=== PATIENT | male | born 1935 | race Caucasian/White ===

== ENCOUNTER 2017-02-18 16:44 | Emergency (ER) | payer OTHER ==
[~2017-02-18] VITALS: Ht 172.7 cm; Wt 83.5 kg
[~2017-02-18 16:44] MED LIST: ASPIRIN81 M1 PO; ATORVASTATIN CA40 M1 PO; Diltiazem180 MG PO; FUROSEMIDE40 MG PO; GLUCOTROL10 MG PO; LANTUS100 U/ML SC; LEVOTHYROXIN0.075 M1 PO; [UNRECOGNIZED DRUG - CODE] IM
[2017-02-18 17:36] VITALS: BP 107/71
[2017-02-18] MEDS ORDERED: NORCO 5-325 TA1 EACH PO (19:09)
[2017-02-18] MEDS ORDERED: WALKER (19:10)
== END 2017-02-18 19:56 | disposition home or self-care (01) ==
LOC: ED 16:44
DX: S32.82XA Multiple fractures of pelvis without disruption of pelvic ring, initial encounter for closed fracture (principal); Z79.899 Other long term (current) drug therapy; W22.8XXA Striking against or struck by other objects, initial encounter; Y93.89 Activity, other specified; Y92.89 Other specified places as the place of occurrence of the external cause; Y99.8 Other external cause status

== ENCOUNTER → 2017-04-12 | Outpatient (CLI) | payer OTHER ==
[~2017-04-12] MED LIST changes: +NORCO 5-325 TA1 EACH PO; +WALKER
== END | disposition home or self-care (01) ==
LOC: CT 15:49
DX: S32.810D Multiple fractures of pelvis with stable disruption of pelvic ring, subsequent encounter for fracture with routine healing (principal); S32.89XD Fracture of other parts of pelvis, subsequent encounter for fracture with routine healing; X58.XXXD Exposure to other specified factors, subsequent encounter

== ENCOUNTER → 2018-04-17 | Outpatient (CLI) | payer OTHER | END | disposition home or self-care (01) | LOC: RAD 10:15 | DX: Z13.820 Encounter for screening for osteoporosis (principal); S32.89XA Fracture of other parts of pelvis, initial encounter for closed fracture; M17.11 Unilateral primary osteoarthritis, right knee; M25.552 Pain in left hip; M85.9 Disorder of bone density and structure, unspecified; X58.XXXA Exposure to other specified factors, initial encounter; Y93.89 Activity, other specified; Y92.89 Other specified places as the place of occurrence of the external cause; Y99.8 Other external cause status ==

== ENCOUNTER 2019-06-18 19:20 | Emergency (ER) | payer OTHER ==
[~2019-06-18] VITALS: Ht 162.5 cm; Wt 70.8 kg
[~2019-06-18 19:20] MED LIST changes: +APRESOLINE10 MG PO; +BUMETANIDE1 MG PO; +CALCIUM ACETAT667 MG PO; +CARVEDILOL3.125 MG PO; +COUMADIN3 M1 PO; +COUMADIN5 M2 PO; +GLUCOTROL5 MG PO; +ISORDIL10 M1 PO; +KLOR-CON M2020 ME1 PO; +LANTUS SOL100 UNIT/1 SQ; -LANTUS100 U/ML SC; +METOLAZONE5 MG PO; +Metolazone5 MG PO
[2019-06-18 19:40] LABS: BASO % 0.1 % (0.0-1.0); EOS # 0.1 10*3/uL (0.0-0.4); EOS % 0.6 % (1.0-4.0); HEMATOCRIT 39.6 % (42.0-52.0); HEMOGLOBIN 12.7 g/dl (14.0-18.0); LYMPH # 1.1 10*3/uL (1.3-4.4); LYMPH % 13.4 % (27.0-41.0); MEAN CELL VOLUME 98.8 fl (80.0-94.0); MEAN CORPUSCULAR HGB 31.7 pg (27.0-31.0); MEAN CORPUSCULAR HGB CONC 32.1 g/dl (33.0-37.0); MEAN PLATELET VOLUME 11.2 fl (9.6-12.3); MONO # 1.4 10*3/uL (0.1-1.0); MONO % 17.3 % (3.0-9.0); NEUT # 5.4 10*3/uL (2.3-7.9); NEUT % 68.1 % (47.0-73.0); PLATELET COUNT AUTOMATED 217 10*3/uL (130-400); RED BLOOD COUNT 4.01 10*6/uL (4.50-5.90)
[2019-06-18 19:50] LABS: CREATININE 2.99 mg/dL (0.70-1.30); POTASSIUM 3.8 mmol/L (3.5-5.1)
[2019-06-18 20:24] LABS: ALBUMIN 3.3 gm/dl (3.1-4.5); CREATININE 3.03 mg/dL (0.70-1.30); POTASSIUM 3.9 mmol/L (3.5-5.1); TOTAL PROTEIN 7.6 gm/dL (6.4-8.2)
[2019-06-18 20:31] LABS: ACT PARTIAL THROMBO TIME 115.9 SECONDS (20.0-32.1); INTERNATIONAL NORM RATIO 9.3 (2.0-3.5)
[2019-06-18 21:03] VITALS: BP 105/75
== END 2019-06-18 23:00 | disposition home or self-care (01) ==
LOC: ED 19:20
PROVIDERS: Emergency Medicine
DX: S70.12XA Contusion of left thigh, initial encounter (principal); D68.2 Hereditary deficiency of other clotting factors; I13.0 Hypertensive heart and chronic kidney disease with heart failure and stage 1 through stage 4 chronic kidney disease, or unspecified chronic kidney disease; E11.22 Type 2 diabetes mellitus with diabetic chronic kidney disease; N18.4 Chronic kidney disease, stage 4 (severe); I50.9 Heart failure, unspecified; E78.5 Hyperlipidemia, unspecified; I48.91 Unspecified atrial fibrillation; E66.9 Obesity, unspecified; Z95.0 Presence of cardiac pacemaker; Z79.899 Other long term (current) drug therapy; Z79.01 Long term (current) use of anticoagulants; Z79.4 Long term (current) use of insulin; X58.XXXA Exposure to other specified factors, initial encounter; Y93.89 Activity, other specified; Y92.89 Other specified places as the place of occurrence of the external cause; Y99.8 Other external cause status

== ENCOUNTER 2019-07-12 10:56 | Inpatient (IN) | payer OTHER ==
[~2019-07-12] VITALS: Ht 162.6 cm; Wt 77.2 kg
[2019-07-12 11:00] VITALS: BP 112/58
[2019-07-12 11:30] LABS: BILIRUBIN NEGATIVE (NEGATIVE); BLOOD NEGATIVE (NEGATIVE); CLARITY CLEAR (CLEAR); COLOR YELLOW (YELLOW); GLUCOSE NEGATIVE (NEGATIVE); KETONE NEGATIVE (NEGATIVE); LEUKO ESTERASE NEGATIVE (NEGATIVE); NITRITE NEGATIVE (NEGATIVE); PH 6.5 (5.0-9.0); RBC 0-2 rbc/hpf (0-2); UROBILINOGEN < 0.2 E.U./dl (0.2-1.0)
[2019-07-12 11:31] LABS: BACTERIA TRACE; WBC 0-2 wbc/hpf (0-5)
[2019-07-12 11:42] VITALS: BP 98/66
[2019-07-12 11:45] LABS: BASO % 0.4 % (0.0-1.0); EOS % 0.2 % (1.0-4.0); HEMATOCRIT 39.3 % (42.0-52.0); HEMOGLOBIN 12.2 g/dl (14.0-18.0); LYMPH # 0.5 10*3/uL (1.3-4.4); LYMPH % 8.1 % (27.0-41.0); MEAN CELL VOLUME 104.2 fl (80.0-94.0); MEAN CORPUSCULAR HGB 32.4 pg (27.0-31.0); MEAN PLATELET VOLUME 10.1 fl (9.6-12.3); MONO # 0.9 10*3/uL (0.1-1.0); MONO % 15.8 % (3.0-9.0); NEUT # 4.3 10*3/uL (2.3-7.9); PLATELET COUNT AUTOMATED 200 10*3/uL (130-400); RED BLOOD COUNT 3.77 10*6/uL (4.50-5.90); RED CELL DISTRI WIDTH 18.4 % (0-14.5); WHITE BLOOD COUNT 5.7 10*3/uL (4.8-10.8)
[2019-07-12 11:59] LABS: CREATININE 3.17 mg/dL (0.70-1.30); POTASSIUM 4.1 mmol/L (3.5-5.1); TOTAL PROTEIN 7.3 gm/dL (6.4-8.2)
[2019-07-12 12:47] VITALS: BP 100/67
[2019-07-12] MEDS ORDERED: CLARITIN10 MG PO (13:21)
[2019-07-12] MEDS ORDERED: SENNA PLUS 8.61 EACH PO (13:42)
[2019-07-12] MEDS ORDERED: Metolazone5 MG PO (13:43)
[2019-07-12] MEDS ORDERED: ISOSORBIDE DINI10 M1 PO (13:44)
[2019-07-12] MEDS ORDERED: POTASSIUM CHLO20 ME3 PO (13:58)
[2019-07-12] MEDS ORDERED: HYDRALAZINE10 MG PO (13:59)
[2019-07-12 14:00] VITALS: BP 93/54
[2019-07-12] MEDS ORDERED: ELIQUIS2.5 M1 PO (14:00)
[2019-07-12] MEDS ORDERED: B COMPLEX1 EACH PO (14:00)
[2019-07-12 14:05] LABS: INTERNATIONAL NORM RATIO 1.4 (2.0-3.5)
[2019-07-12] MEDS ORDERED: LANTUS SOL100 UNIT/1 SQ (14:45)
[2019-07-12] MEDS ORDERED: SYNTHROID,LEVO75 MCG PO (14:51)
[2019-07-12 16:00] VITALS: BP 99/60
[2019-07-12 20:00] VITALS: BP 107/65
[2019-07-13] VITALS: BP 106/63
[2019-07-13 06:41] LABS: ACT PARTIAL THROMBO TIME 57.5 SECONDS (20.0-32.1); INTERNATIONAL NORM RATIO 1.5 (2.0-3.5)
[2019-07-13 06:42] LABS: BASO % 0.5 % (0.0-1.0); EOS # 0.1 10*3/uL (0.0-0.4); EOS % 0.6 % (1.0-4.0); HEMATOCRIT 36.6 % (42.0-52.0); HEMOGLOBIN 11.6 g/dl (14.0-18.0); LYMPH # 0.9 10*3/uL (1.3-4.4); LYMPH % 10.9 % (27.0-41.0); MEAN CORPUSCULAR HGB 32.5 pg (27.0-31.0); MEAN CORPUSCULAR HGB CONC 31.7 g/dl (33.0-37.0); MEAN PLATELET VOLUME 10.8 fl (9.6-12.3); MONO # 1.4 10*3/uL (0.1-1.0); MONO % 16.5 % (3.0-9.0); NEUT # 5.9 10*3/uL (2.3-7.9); NEUT % 70.9 % (47.0-73.0); PLATELET COUNT AUTOMATED 193 10*3/uL (130-400); RED BLOOD COUNT 3.57 10*6/uL (4.50-5.90); RED CELL DISTRI WIDTH 18.1 % (0-14.5); WHITE BLOOD COUNT 8.3 10*3/uL (4.8-10.8)
[2019-07-13 06:48] LABS: MEAN CELL VOLUME 102.5 fl (80.0-94.0)
[2019-07-13 07:00] LABS: ALBUMIN 2.6 gm/dl (3.1-4.5); CREATININE 3.27 mg/dL (0.70-1.30); PHOSPHOROUS 5.1 mg/dL (2.5-4.9); POTASSIUM 3.8 mmol/L (3.5-5.1)
[2019-07-13 07:08] LABS: THYROID STIM HORMONE (HS) 4.17 uIU/ml (0.358-4.75); TOTAL PROTEIN 6.9 gm/dL (6.4-8.2)
[2019-07-13 08:00] VITALS: BP 98/72
[2019-07-13 08:25] LABS: VITAMIN D, 25-HYDROXY 47.8 ng/mL (30-100)
[2019-07-13 12:00] VITALS: BP 95/54
[2019-07-13 14:32] LABS: TROPONIN I 1.34 ng/ml (<0.045)
[2019-07-13 16:00] VITALS: BP 95/61
[2019-07-13 20:00] VITALS: BP 102/63
[2019-07-14] VITALS: BP 115/74
[2019-07-14 05:00] VITALS: BP 123/70
[2019-07-14 06:40] LABS: CREATININE 4.02 mg/dL (0.70-1.30); POTASSIUM 4.2 mmol/L (3.5-5.1)
[2019-07-14 06:53] LABS: HEMATOCRIT 37.5 % (42.0-52.0); HEMOGLOBIN 11.9 g/dl (14.0-18.0); MEAN CORPUSCULAR HGB 31.7 pg (27.0-31.0); MEAN CORPUSCULAR HGB CONC 31.7 g/dl (33.0-37.0); PLATELET COUNT AUTOMATED 194 10*3/uL (130-400); RED BLOOD COUNT 3.75 10*6/uL (4.50-5.90); RED CELL DISTRI WIDTH 17.8 % (0-14.5); WHITE BLOOD COUNT 8.2 10*3/uL (4.8-10.8)
[2019-07-14 07:01] LABS: TOTAL CELLS COUNTED 100 #CELLS
[2019-07-14 07:02] LABS: POLYCHROMASIA SLIGHT
[2019-07-14 07:03] LABS: BURR CELLS FEW; PLATELET SUFFICIENCY NORMAL (NORMAL); SCHISTOCYTES FEW
[2019-07-14 12:00] VITALS: BP 102/56
[2019-07-14 20:00] VITALS: BP 100/55
[2019-07-15] VITALS: BP 106/63
[2019-07-15 05:20] VITALS: BP 90/70
[2019-07-15 06:18] LABS: HEMATOCRIT 33.8 % (42.0-52.0); HEMOGLOBIN 10.7 g/dl (14.0-18.0); MEAN CELL VOLUME 99.7 fl (80.0-94.0); MEAN CORPUSCULAR HGB 31.6 pg (27.0-31.0); MEAN CORPUSCULAR HGB CONC 31.7 g/dl (33.0-37.0); MEAN PLATELET VOLUME 10.6 fl (9.6-12.3); PLATELET COUNT AUTOMATED 173 10*3/uL (130-400); RED BLOOD COUNT 3.39 10*6/uL (4.50-5.90); RED CELL DISTRI WIDTH 17.6 % (0-14.5); WHITE BLOOD COUNT 8.3 10*3/uL (4.8-10.8)
[2019-07-15 06:34] LABS: CREATININE 4.31 mg/dL (0.70-1.30)
[2019-07-15 06:36] LABS: PHOSPHOROUS 7.5 mg/dL (2.5-4.9)
[2019-07-15 07:11] LABS: PLATELET SUFFICIENCY NORMAL (NORMAL); TOTAL CELLS COUNTED 100 #CELLS; TOXIC GRANULATION SLIGHT
[2019-07-15 07:12] LABS: BURR CELLS FEW; OVALOCYTES FEW; POLYCHROMASIA SLIGHT; SCHISTOCYTES FEW
[2019-07-15 12:00] VITALS: BP 113/68
[2019-07-15 16:00] VITALS: BP 113/74
[2019-07-15 20:00] VITALS: BP 135/77
[2019-07-16] VITALS: BP 138/75
[2019-07-16 08:00] VITALS: BP 122/76
[2019-07-16 08:03] LABS: BASO % 0.1 % (0.0-1.0); HEMATOCRIT 34.9 % (42.0-52.0); HEMOGLOBIN 11.2 g/dl (14.0-18.0); LYMPH # 0.3 10*3/uL (1.3-4.4); LYMPH % 3.2 % (27.0-41.0); MEAN CELL VOLUME 99.4 fl (80.0-94.0); MEAN CORPUSCULAR HGB 31.9 pg (27.0-31.0); MEAN CORPUSCULAR HGB CONC 32.1 g/dl (33.0-37.0); MONO # 0.4 10*3/uL (0.1-1.0); MONO % 5.5 % (3.0-9.0); NEUT # 7.3 10*3/uL (2.3-7.9); NEUT % 90.5 % (47.0-73.0); PLATELET COUNT AUTOMATED 183 10*3/uL (130-400); RED BLOOD COUNT 3.51 10*6/uL (4.50-5.90); RED CELL DISTRI WIDTH 17.7 % (0-14.5)
[2019-07-16 08:13] LABS: ALBUMIN 2.9 gm/dl (3.1-4.5); CREATININE 4.65 mg/dL (0.70-1.30); POTASSIUM 3.8 mmol/L (3.5-5.1)
[2019-07-16 08:14] LABS: PHOSPHOROUS 7.1 mg/dL (2.5-4.9)
[2019-07-16 08:28] LABS: ACANTHOCYTES MODERATE; OVALOCYTES MODERATE; PLATELET SUFFICIENCY NORMAL (NORMAL); SPHEROCYTES FEW; TOTAL CELLS COUNTED 100 #CELLS
[2019-07-16 12:00] VITALS: BP 121/69
[2019-07-16] MEDS ORDERED: PREDNISONE10 MG PO (12:56)
[2019-07-16] MEDS ORDERED: ELIMITE 5%60 GM T (12:56)
[2019-07-16] MEDS ORDERED: OMNICEF300 MG PO (12:56)
[2019-07-16] MEDS ORDERED: AVPAK AZITHROM250 M1 PO (12:56)
[2019-07-16 16:00] VITALS: BP 110/84
[2019-07-16 20:00] VITALS: BP 104/80
[2019-07-17] VITALS: BP 136/75
[2019-07-17 05:48] VITALS: BP 115/88
[2019-07-17] MEDS ORDERED: ROPINIROLE HY0.25 MG PO (07:33)
[2019-07-17 07:42] LABS: HEMATOCRIT 35.7 % (42.0-52.0); HEMOGLOBIN 11.5 g/dl (14.0-18.0); MEAN CELL VOLUME 99.7 fl (80.0-94.0); MEAN CORPUSCULAR HGB 32.1 pg (27.0-31.0); MEAN CORPUSCULAR HGB CONC 32.2 g/dl (33.0-37.0); MEAN PLATELET VOLUME 10.7 fl (9.6-12.3); PLATELET COUNT AUTOMATED 155 10*3/uL (130-400); RED BLOOD COUNT 3.58 10*6/uL (4.50-5.90); RED CELL DISTRI WIDTH 17.6 % (0-14.5); WHITE BLOOD COUNT 6.7 10*3/uL (4.8-10.8)
[2019-07-17 07:54] LABS: ALBUMIN 3.1 gm/dl (3.1-4.5); CREATININE 4.45 mg/dL (0.70-1.30); PHOSPHOROUS 6.4 mg/dL (2.5-4.9); POTASSIUM 3.5 mmol/L (3.5-5.1)
[2019-07-17 08:00] VITALS: BP 128/73
[2019-07-17 08:12] LABS: BASOPHILS 1 % (0-1); OVALOCYTES MODERATE; PLATELET SUFFICIENCY NORMAL (NORMAL); SCHISTOCYTES FEW; TOTAL CELLS COUNTED 100 #CELLS
[2019-07-17 12:00] VITALS: BP 132/68
== END 2019-07-17 14:50 | disposition other institution (70) | DRG 682 ==
LOC: ED 10:56 → EDHOLD 12:45 → 4E 12:45 → 5E 07-16 19:25
PROVIDERS: Emergency Medicine; Internal Medicine; Student in an Organized Health Care Education/Training Program; ADMIT Emergency Medicine
DX: N17.0 Acute kidney failure with tubular necrosis (principal); I50.43 Acute on chronic combined systolic (congestive) and diastolic (congestive) heart failure; I13.0 Hypertensive heart and chronic kidney disease with heart failure and stage 1 through stage 4 chronic kidney disease, or unspecified chronic kidney disease; E44.0 Moderate protein-calorie malnutrition; I48.19 Other persistent atrial fibrillation; I50.42 Chronic combined systolic (congestive) and diastolic (congestive) heart failure; I42.9 Cardiomyopathy, unspecified; N18.5 Chronic kidney disease, stage 5; B86 Scabies; E11.649 Type 2 diabetes mellitus with hypoglycemia without coma; K29.70 Gastritis, unspecified, without bleeding; E80.6 Other disorders of bilirubin metabolism; E11.22 Type 2 diabetes mellitus with diabetic chronic kidney disease; R74.0 Nonspecific elevation of levels of transaminase and lactic acid dehydrogenase [LDH]; E78.5 Hyperlipidemia, unspecified; M19.90 Unspecified osteoarthritis, unspecified site; M54.9 Dorsalgia, unspecified; G89.29 Other chronic pain; R34 Anuria and oliguria; D53.9 Nutritional anemia, unspecified; E87.8 Other disorders of electrolyte and fluid balance, not elsewhere classified; J40 Bronchitis, not specified as acute or chronic; E83.39 Other disorders of phosphorus metabolism; Z51.5 Encounter for palliative care; Z66 Do not resuscitate; Z53.20 Procedure and treatment not carried out because of patient's decision for unspecified reasons; Z68.29 Body mass index [BMI] 29.0-29.9, adult; Z79.4 Long term (current) use of insulin; Z95.0 Presence of cardiac pacemaker; Z82.49 Family history of ischemic heart disease and other diseases of the circulatory system; Z79.899 Other long term (current) drug therapy; Z79.01 Long term (current) use of anticoagulants